=== PATIENT | male | born 1995 | race Caucasian/White ===

== ENCOUNTER 2021-07-16 03:01 | Outpatient (CLI) | payer BC, SELFPAY ==
--- NOTE | 2021-07-16 | DI.MRI_ITS ---
Exam(s) MR LOWER JOINT LT WO EXAM: MR LOWER JOINT LT WO CLINICAL HISTORY: LT HIP ROTATION, EXTENSION, MUSCLE ATROPHY, PAIN TECHNIQUE: Multiplanar multisequence MRI of the knee was performed. 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 No surrounding marrow edema i n the sacrum and iliac bones. The symphysis pubis appears unremarkable. There is a relatively well-defined area of significant intraosseous signal abnormality in the left hi p involving the upper half of the greater trochanter without a distinct fracture line in there is no evidence of ipsilateral hip joint effusion. No evidence of avascular necrosis. This signal abnorma lity involves the lower aspect of the ipsilateral femoral neck. It does not extend down to involve t he lesser trochanter and there is no evidence of iliopsoas bursitis there is no abnormal intraosseous signal seen in the acetabulum nor in the ipsilateral pubic rami and ischial tuberosity. There is no evidence of cortical breakthrough. There is some increased signal in the surrounding tendons but no full thickness tears and no fluid in the trochanteric bursa. There is no abnormal signal-tear of the hamstrings. IMPRESSION: 1. There is relatively well-defined area of signal abnormality in the upper half of the greater troch anter and lower aspect of the femoral neck of the left hip, not associated with fracture nor joint ef fusion. There is some signal increase in the contiguous tendons. Findings are probably related to tra yu and correlation with any recent direct trauma (such as bone contusion) is recommended. Bone lesio n is less likely but in the absence of recent trauma to this region I would recommend whole body nucl ear bone scan to determine if there are any other concerning areas in the skeleton. 2. 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 Correlation with any history of ankylosing spondylitis and/ or ot her systemic disease is recommended. DATA REPOSITORY:
== END 2021-07-16 03:21 ==
PROVIDERS: Visit Provider Chiropractor
DX: R52 Pain, unspecified (principal); R93.89 Abnormal findings on diagnostic imaging of other specified body structures
CPT/HCPCS: 73721

== ENCOUNTER 2021-08-19 11:19 | Emergency (ER) | payer BC, SELFPAY ==
--- NOTE | 2021-08-19 11:15 | DI.RAD_ITS ---
Exam(s) XR SHOULDER RT COMPLETE 2+V EXAM: XR SHOULDER RT COMPLETE 2+V CLINICAL HISTORY: R shoulder pain. TECHNIQUE: 2D digital imaging was performed. COMPARISON: No exams were available for comparison FINDINGS: BONES: No acute fracture is present. No bony destructive lesion is seen. JOINTS: No dislocation present. SOFT TISSUE: Normal. IMPRESSION: Unremarkable radiographs of the right shoulder. DATA REPOSITORY: RADIATION DOSE DELIVERED:
[2021-08-19 11:21] VITALS: BP 130/65; PULSE 72; RESP 14; TEMP 36.5; O2SAT 100
--- NOTE | 2021-08-19 11:32 | ED.GENADUL_ITS ---
Discharge Plan Disposition Patient Disposition: HOME Condition: Improving Discharge Details Chief Complaint: Orthopedic Clinical Impression: Sprain of right acromioclavicular joint Primary Care Provider: Ida,Local ED Provider: Roque Jackson Home Meds and New Rx's Prescriptions: No Action No Known Home Meds RF: 0 Discharge Instructions Instructions: Shoulder Sprain (ED) Additional Instructions: Wear sling approximately 7 days time. May remove once daily to perform range of motion exercises as well as for bathing. Tylenol and ibuprofen as needed for pain. Apply ice to area 20 minutes at a time to reduce pain and swelling. Please follow-up with physical therapy as prescribed. Return to the emergency department for any acute concerns. Stand Alone Forms: Physical Therapy Referral Medical Decision Making 25-year-old male was drawing back on a compound bow yesterday and as the police bowl began to release to try to jerk back against the tension of the bowel with pelvis strain right superior shoulder. Since that time pain with movement overhead. On exam the patient has somewhat limited range of motion due to pain but otherwise physical exam shows no deficits. He is tender overlying the right AC joint. X-rays negative for acute findings. Consistent with right AC joint strain. We will keep him in a sling for approximately 1 week, referred to physical therapy. He is stable for outpatient management. HPI General Mode of arrival: ambulatory . Date/Time Provider Initiated Documentation: 08/19/21 11:20 . Limitations to Documentation: no limitations . Information obtained by: patient . History of Present Illness 25 year old M presents to the emergency department with the chief complaint of Right shoulder pain since yesterday, described as mild, Quality is described as constant, and is localized to the right and upper extremity. Patient reports no radiation. Patient started experiencing this hour(s) and it has been intermittent. Rest improves symptom(s), Movement worsens symptoms . Patient notes denies weakness. Patient did receive the following treatments prior to arrival, none Related Data Home Medications Medication Instructions Recorded Confirmed Unknown [No Known Home Meds] 08/19/21 08/19/21 Allergies Allergy/AdvReac Type Severity Reaction Status Date / Time No Known Allergies Allergy Unverified 08/19/21 11:47 General Stated Complaint: Orthopedic UMAIR: 4 Review of Systems Narrative: No other injury, no weakness or tingling. Otherwise healthy young man. Needs primary care. 5 systems otherwise PFSH All Active Problems (Updated 08/19/21 @ 12:08 by Roque Jackson MD) Sprain of right acromioclavicular joint (Acute) Social History Smoking/Tobacco Use Status: Current-Occasional Tobacco Type: cigars Smoking risk assessment performed?: Yes Drug use: Never Substance use type: does not use Do you feel safe at home: Yes Do you feel safe in your relationship?: Yes Exam Narrative Exam Narrative: GEN: awake, alert, oriented 3. Pleasant, well groomed, interactive. HEAD: Normocephalic, atraumatic EYES: PERRL, EOMI NECK: Full ROM, no MAYRA, no menigismus CHEST/RESP: Nontender, clear to auscultation bilateral, no wheeze/rhonchi/rales CARDIOVASCULAR: RRR, no murmur, rub renate. 2+ Rad pulse bilateral EXT: Full ROM, right arm abduction is limited by pain. Right upper extremity reveals normal motor and sensory findings with 2+ radial pulse bilateral extremity. There is tenderness overlying the right AC joint without instability noted. Neuro: Grossly normal neurologic exam, conversant, interactive. Psych: Speech fluent, thoughts congruent, affect normal Course Vital Signs Vital signs: Vital Signs Temperature 36.5 C 08/19/21 11:21 Pulse 72 08/19/21 11:21 Respiratory Rate 14 08/19/21 11:21 Blood Pressure 130/65 08/19/21 11:21 Pulse Oximetry 100 08/19/21 11:21 Temperature 36.5 C 08/19/21 11:21 Temperature Source Oral 08/19/21 11:21 Pulse 72 08/19/21 11:21 Respiratory Rate 14 08/19/21 11:21 Blood Pressure 130/65 08/19/21 11:21 Blood Pressure Position Sitting 08/19/21 11:21 Pulse Oximetry 100 08/19/21 11:21 Oxygen Delivery Method Room Air 08/19/21 11:21 Oxygen Flow Rate 0 08/19/21 11:21 Pain Level 1 08/19/21 11:21
[2021-08-19 11:44] VITALS: PULSE 79; O2SAT 97
--- NOTE | 2021-08-19 11:51 | DI.VRAD_ITS ---
PROCEDURE INFORMATION: Exam: XR Right Shoulder Exam date and time: 08/19/2021 11:26 AM Age: 25 years old Clinical indication: Other: Right shoulder pain TECHNIQUE: Imaging protocol: XR Right shoulder. Views: 2 or more views. COMPARISON: No relevant prior studies available. FINDINGS: Bones/joints: There is no evidence of acute fracture.There is no evidence of malalignment or dislocation. Soft tissues: Normal. IMPRESSION: There is no evidence of acute fracture.There is no evidence of malalignment or dislocation. Dictated and Authenticated by: Peterson Chaidez MD. Ordering:OTTO Nevarez MD
[2021-08-19 12:03] VITALS: BP 112/62
--- NOTE | 2021-08-19 17:47 | NUR.NOTE ---
referral to cm for pcp
== END 2021-08-19 12:22 | disposition home or self-care (01) ==
PROVIDERS: Emergency Provider Emergency Medicine
DX: S43.51XA Sprain of right acromioclavicular joint, initial encounter (principal); X50.0XXA Overexertion from strenuous movement or load, initial encounter
CPT/HCPCS: 99283; 73030

== ENCOUNTER 2021-09-13 10:38 | Outpatient (REF) | payer BC, SELFPAY ==
[2021-09-13 14:00] LABS: HCT 40.4 % (40.0-50.0); HGB 12.8 g/dL (13.5-17.5); MCH 28.6 pg (27.0-33.0); MCHC 31.7 % (32.0-36.0); MCV 90.2 fL (80-95); MPV 9.6 fL (8.0-11.0); Platelet Count 299 10^3/uL (130-400); RBC 4.48 10^6/uL (4.36-5.78); RDW 12.3 % (11.8-14.1); RDW-SD 40.7 fL; WBC 8.52 10^3/uL (4.4-10.8)
[2021-09-13 14:21] LABS: ALT 34 U/L (16-63); AST 31 U/L (15-37); Alkaline Phosphatase 118 U/L (46-116); Anion Gap 8.8 mmol/L (3-11); BUN 23 mg/dL (7-18); Bilirubin, Total 0.4 mg/dL (0.2-1.0); CO2 27.2 mmol/L (21.0-32.0); CREATININE 0.7 mg/dL (0.70-1.30); Calcium 9.3 mg/dL (8.5-10.1); Chloride 105 mmol/L (98-107); Creatine Kinase 227 U/L (39-308); Glucose 92 mg/dL (74-106); Potassium 4.4 mmol/L (3.5-5.1); Sodium 141 mmol/L (136-145); Total Protein 7.5 g/dL (6.4-8.2)
== END 2021-09-13 10:39 | disposition home or self-care (01) ==
LOC: NCHCN 10:38
PROVIDERS: Visit Provider Nurse Practitioner Family
DX: R62.52 Short stature (child) (principal); M62.50 Muscle wasting and atrophy, not elsewhere classified, unspecified site
CPT/HCPCS: 80053; 82550; 85027

== ENCOUNTER 2022-08-29 18:51 | Outpatient (REF) | payer BC, SELFPAY ==
[2022-08-29 19:15] LABS: C-Reactive Protein 1.32 mg/dL (0.0-0.3)
[2022-08-29 19:19] LABS: ESR 30 mm/hr (0-15)
[2022-08-30 19:35] LABS: Rheumatoid Factor <8.6 IU/mL (<12.0)
== END 2022-08-29 18:52 | disposition home or self-care (01) ==
LOC: NCHCN 18:51
PROVIDERS: Visit Provider Nurse Practitioner Family
DX: M25.552 Pain in left hip (principal); M62.50 Muscle wasting and atrophy, not elsewhere classified, unspecified site; M54.59 Other low back pain
CPT/HCPCS: 85652; 86140; 86431

== ENCOUNTER 2022-11-12 14:52 | Outpatient (CLI) | payer SELFPAY ==
--- NOTE | 2022-11-12 14:00 | DI.RAD_ITS ---
Exam(s) XR HIP LT COMPLETE AP PELVIS EXAM: XR HIP LT COMPLETE AP PELVIS CLINICAL HISTORY: left hip pain. TECHNIQUE: 2D digital imaging was performed of the left hip. Two views were obtained. AP pelvis an d lateral left hip views were obtained. FINDINGS: BONES: No acute fracture is present. No bony destructive lesion is seen. JOINTS: No dislocation present. SOFT TISSUE: Normal. IMPRESSION: Unremarkable radiographs of the left hip. Unremarkable radiographs of the pelvis DATA REPOSITORY: RADIATION DOSE DELIVERED:
== END 2022-11-12 14:53 | disposition home or self-care (01) ==
LOC: DIORS 14:52
PROVIDERS: PCP Nurse Practitioner Family; Visit Provider Physician Assistant
DX: M25.552 Pain in left hip (principal)
CPT/HCPCS: 73502

== ENCOUNTER 2023-10-24 19:39 | Emergency (ER) | payer BC, SELFPAY ==
[2023-10-24 19:44] VITALS: BP 145/71; PULSE 76; RESP 22; TEMP 36.4; O2SAT 97
--- NOTE | 2023-10-24 19:48 | W.ED.GENAD ---
Discharge Plan Discharge Details Chief Complaint: Orthopedic Clinical Impression: Effusion, left hip Primary Care Provider: BERNADETTE ALVARADO ED Provider: Jas Moctezuma Home Meds and New Rx's Prescriptions: No Action No Known Home Meds HPI General Date/Time Provider Initiated Documentation: 10/24/23 19:48. HPI Narrative: MDM This is an overall very well-appearing normothermic and not tachycardic 28-year-old male with ankylosing spondylitis now with left hip pain and weakness concerning for exacerbation of prior trochanteric bursitis. No pain out of proportion to suggest necrotizing soft tissue infection. No history of malignancy to suggest increased risk for pathological fracture. I considered septic joint as patient did have a fever several days ago so we will obtain inflammatory markers. No rash to hip to suggest zoster. No ecchymosis to suggest trauma. No dysuria nor frequency so doubt UTI. No testicular pain to suggest testicular torsion and I do not feel that the patient required an ultrasound. No history of peripheral vascular disease nor any pulse deficits so I did not feel that the patient required a CT angiogram with runoffs. No left lower quadrant pain to suggest diverticulitis and no diarrhea. No right lower quadrant pain to suggest appendicitis. No back pain to suggest cauda equina. No recent tick bites to suggest Lyme arthritis. Will treat with acetaminophen and ibuprofen and reassess following plain films. Will complete bedside ultrasound to assess for any obvious effusion. 8:53 PM Limited bedside ultrasound showing left hip effusion for which I ordered blood cultures basic labs and a sed rate and CRP. Will also order Lyme and tickborne panel panel. Patient is not septic appearing so I did not order a lactate nor treat empirically with broad-spectrum antibiotics. Will speak with on-call orthopedics. Unfortunately we do not have orthopedics on locally. I have paged orthopedics at [facility]. 9:45 PM Patient metabolic panel showing no MAKENZIE. Normal glucose. Mildly elevated BUN. CRP markedly elevated at 9.62 mg/dL. CBC with no anemia no leukocytosis. No thrombocytopenia. ESR elevated at 59 mm/h. Virtual radiology preliminary read showing mild bony spurring off of the inferior aspect of the greater trochanter. Reportedly stable since November 12, 2022. 10:30 PM I spoke with Dr. Pablo Stevens From [facility] orthopedics. He advised observing off of antibiotics. He recommended transfer to [facility] for consideration of IR arthrocentesis. I spoke with Dr. Jones from the ED at [facility] who agreed graciously to accept the patient. I updated the patient on plan of care and transferred the patient via basic crew. Chronic conditions affecting the care of the patient: Left hip pain weakness History obtained from an outside historian: N/A External record review: [facility] EMR Medications: Acetaminophen ibuprofen Social determinants of health affecting disposition: N/A Management discussed with: N/A Treatment/interventions considered: N/A Response to therapies provided: N/A HPI This is a 28-year-old male with history of trochanteric left hip bursitis arrived to the emergency department via private vehicle with his girlfriend in the setting of left hip pain. 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 He notes that 4 days ago he began having slight pain in his left hip associated with stiffness. He did not fall. He denies any trauma to his left hip. He has no history of malignancy. He does have a history of ankylosing spondylitis but has not been adherent with his adalimumab secondary to cost. He notes that 2 days ago he had a fever but also had some nausea. He had several coworkers who were sick with a stomach bug. He denies any testicular pain. He has had no recent tick bites. He denies any abdominal pain and specifically denies history of right lower and left lower quadrant pain. He reports that he has had similar symptoms in the past. He is generally able to flex his left hip and this improves his symptoms. He reports slightly decreased range of motion in his left hip. He has been using his father's old crutches. Exam General: Well-appearing in no acute distress speaking in complete sentences. Head: Normocephalic, atraumatic. Eye: Extraocular eye movements intact. No conjunctival injection. No scleral icterus. Ear, nose, mouth, throat: Grossly normal inspection. Normal voice, handling secretions normally. Neck: Trachea midline. Cardiovascular: Well-perfused distal extremities. Respiratory: Nonlabored respiration. Gastrointestinal: Nondistended abdomen. Musculoskeletal: Left lower extremity no signs of muscle wasting deformities ecchymosis or lacerations. Left foot warm well-perfused less than 2-second capillary refill. 2+ left PT and DP pulse. 5 out of 5 strength left foot dorsi and plantarflexion. Patient has no tenderness to left lower extremity. He has full range of motion in his left ankle and left knee. His left hip has slight limitation in his ability to flex. He can flex to approximately 110 degrees. 5 out of 5 strength in dorsi and plantarflexion. Patient is able to straight leg raise on the left. Skin: Normal for age and race, grossly normal temperature and turgor. No acute rash. Neurologic: Alert and appropriate, no apparent acute deficits. Psychiatric: Mood and manner are appropriate. Grooming and personal hygiene are appropriate. Related Data Home Medications Medication Instructions Recorded Confirmed Unknown [No Known Home Meds] 08/19/21 10/24/23 Allergies Allergy/AdvReac Type Severity Reaction Status Date / Time No Known Allergies Allergy Unverified 08/02/23 13:00 General Stated Complaint: Orthopedic UMAIR: 3 Course Vital Signs Vital signs: Vital Signs Temperature 36.4 C 10/24/23 19:44 Pulse 76 10/24/23 19:44 Respiratory Rate 22 10/24/23 19:44 Blood Pressure 145/71 H 10/24/23 19:44 Pulse Oximetry 97 10/24/23 19:44 Temperature 36.4 C 10/24/23 19:44 Temperature Source Oral 10/24/23 19:44 Pulse 76 10/24/23 19:44 Respiratory Rate 22 10/24/23 19:44 Blood Pressure 145/71 H 10/24/23 19:44 Blood Pressure Position Sitting 10/24/23 19:44 Pulse Oximetry 97 10/24/23 19:44 Oxygen Delivery Method Room Air 10/24/23 19:44 Oxygen Flow Rate 0 10/24/23 19:44 Pain Level 3 10/24/23 19:44 Medical Decision Making Quality:SDOH Health Related Social Needs: No Data to Display PFSH All Active Problems (Updated 10/24/23 @ 20:45 by Jas Moctezuma MD) Effusion, left hip (Acute) Trochanteric bursitis, left hip (Acute) Weakness of left hip (Acute) Medical History Muscle atrophy Short stature Chronic low back pain Social History Smoking/Tobacco Use Status: Current-Occasional Tobacco Type: cigars Smoking risk assessment performed?: Yes Alcohol Intake: current Alcohol Intake frequency: holidays/special occasions only Alcohol type: beer Drug use: Never Substance use type: does not use Housing: house Current gender identity: male Do you feel safe at home: Yes Do you feel safe in your relationship?: Yes POCUS Exam (ED) Limited Soft Tissue Exam DATE OF EXAM: 10/24/23 TIME OF EXAM: 20:44 PROVIDER THAT PERFORMED THE STUDY: Jas Moctezuma IS THIS A REPEAT EXAM DURING THIS ENCOUNTER: No LOCATION OF EXAM: Lower extremity/left REASON FOR EXAM: Pain Exam Complete DIFFERENTIAL DIAGNOSES: Left hip effusion. No right hip effusion.
--- NOTE | 2023-10-24 20:00 | DI.RAD_ITS ---
Exam(s) XR HIP LT COMPLETE AP PELVIS EXAM: XR HIP LT COMPLETE AP PELVIS CLINICAL HISTORY: Left hip pain. TECHNIQUE: 2D digital imaging was performed. COMPARISON: CR XR HIP LT COMPLETE AP PELVIS from 11/12/2022 FINDINGS: 3 views No evidence of pelvic nor hip fracture. There is mild uniform narrowing of the left hip joint space. No femoral head osteophytes. There is unilateral left-sided spurring off the inferior aspect of the left greater trochanter. This may represent enthesopathy at musculotendinous insertion. Nevertheless, this finding is unchanged f rom x-rays of October 2022. IMPRESSION: As above but no acute osseous findings in the pelvis and left hip. Mild uniform left hip joint space narrowing which is also unchanged from 1 year ago. DATA REPOSITORY: RADIATION DOSE DELIVERED:
[2023-10-24] MEDS: Ibuprofen 400 MG TAB PO (20:11)
[2023-10-24] MEDS: Acetaminophen 500 MG TAB 650 MG PO (20:12)
--- NOTE | 2023-10-24 20:57 | DI.VRAD_ITS ---
PROCEDURE INFORMATION: Exam: XR Left Hip Exam date and time: 10/24/2023 8:16 PM Age: 28 years old Clinical indication: Left hip; Patient HX: Lt hip pain TECHNIQUE: Imaging protocol: Radiologic exam of the left hip. Views: 2 or 3 views hip with pelvis when performed. COMPARISON: CR XR HIP LT COMPLETE AP PELVIS 11/12/2022 2:34 PM FINDINGS: Bones/joints: There is mild spurring off the inferior aspect of the greater trochanter. This could represent a chronic tendinous insertion site enthesopathy. This is also present 11/12/2022.. No acute fracture. Soft tissues: Unremarkable. IMPRESSION: 1. No acute findings. 2. Mild bony spurring off of the inferior aspect of the greater trochanter. This could represent a chronic enthesopathy at a musculotendinous insertion. Previous MRI dated 07/16/2021 also describes changes of the greater trochanter thought to possibly represent old trauma. 3. Stable since 11/12/2022. Dictated and Authenticated by: Prince Rendon MD. Ordering:AFSHIN Mark MD
[2023-10-24 21:08] LABS: ESR 59 mm/hr (0-15)
[2023-10-24 21:11] LABS: Abs Immature Grans 0.03 10^3/uL (0.0-0.06); Absolute Basophil Count 0.07 10^3/uL (0.0-0.2); Absolute Eosinophil Count 0.23 10^3/uL (0.0-0.7); Absolute Lymphocyte Count 3.58 10^3/uL (1.2-3.4); Absolute Monocyte Count 0.91 10^3/uL (0.1-0.8); Absolute Neutrophil Count 4.83 10^3/uL (1.2-6.7); Basophils % 0.7; Eosinophils % 2.4; HCT 42.5 % (40.0-50.0); HGB 14.1 g/dL (13.5-17.5); Immature Grans % 0.3; Lymphocytes % 37.1; MCH 28.2 pg (27.0-33.0); MCHC 33.2 % (32.0-36.0); MCV 85 fL (80-95); MPV 9.6 fL (8.0-11.0); Monocytes % 9.4; Neutrophils % 50.1; Platelet Count 309 10^3/uL (130-400); RDW 12.8 % (11.8-14.1); RDW-SD 39.6 fL; WBC 9.65 10^3/uL (4.4-10.8)
[2023-10-24 21:20] LABS: Anion Gap 9.5 mmol/L (3-11); BUN 20 mg/dL (7-18); C-Reactive Protein 9.62 mg/dL (<or=0.5); CO2 28.5 mmol/L (21.0-32.0); CREATININE 0.8 mg/dL (0.70-1.30); Calcium 9.6 mg/dL (8.5-10.1); Chloride 101 mmol/L (98-107); Glucose 95 mg/dL (74-106); Potassium 3.9 mmol/L (3.5-5.1); Sodium 139 mmol/L (136-145)
[2023-10-24 22:00] VITALS: BP 126/66; RESP 16; TEMP 36.6; O2SAT 98
[2023-10-24] MEDS: Ondansetron 4 MG/2 ML VIAL IVP (22:47)
[2023-10-24 23:02] VITALS: BP 120/80; PULSE 88; RESP 16; TEMP 36.6; O2SAT 98
[2023-10-27 10:51] LABS: Lyme Ab w Rflx to Lyme Confirm Negative (Negative)
[2023-10-28 15:25] LABS: Anaplasma phagocytophilum Negative (Negative); B. miyamotoi PCR Negative (Negative); Babesia divergens/MO-1 Negative (Negative); Babesia duncani Negative (Negative); Babesia microti Negative (Negative); Ehrlichia chaffeensis Negative (Negative); Ehrlichia ewingii/canis Negative (Negative); Ehrlichia muris eauclairensis Negative (Negative)
== END 2023-10-24 23:17 ==
LOC: ER 19:42
PROVIDERS: Emergency Provider Emergency Medicine; PCP Nurse Practitioner Family
DX: M25.552 Pain in left hip (principal); M25.572 Pain in left ankle and joints of left foot; M79.672 Pain in left foot; M25.452 Effusion, left hip; M70.62 Trochanteric bursitis, left hip
CPT/HCPCS: 76882; 80048; 85652; 87040; 87798; 96374; 99283; 73502; 85025; 86140; 86618; J2405

== ENCOUNTER 2025-02-26 14:31 | Emergency (ER) | payer OTHER, SELFPAY ==
--- NOTE | 2025-02-26 14:35 | ED.GENADUL_ITS ---
Discharge Plan Disposition Patient Disposition: Home Discharge Details Clinical Impression: Laceration of left lower leg, Immunization, tetanus-diphtheria Primary Care Provider: BERNADETTE ALVARADO ED Provider: Jas Moctezuma Home Meds and New Rx's Prescriptions: New cephalexin 500 mg capsule 500 mg PO QID 5 Days Qty: 20 0RF Continued Humira Pen 40 mg/0.8 mL pen injector kit See Rx Instructions subcut .COMPLEX Rx Instructions: inject one - 40 mg/0.8 mL pen every 2 weeks subcut Discharge Instructions Additional Instructions: You are seen in the emergency department for your ankle laceration. This was closed with sutures that will need to be removed in 7 to 10 days. As we discussed, please keep your wound clean, dry and covered. Please do not soak in a tub, swim or engage in any activities which could introduce dirt into your wound. You may return to the emergency department, go to urgent care or go to your primary care provider in 7 to 10 days to have your stitches removed. As we discussed if you develop any foul-smelling drainage fevers streaking signs of infection or have any other concerns please return to the emergency department. Your tetanus was updated. Please take these antibiotics as directed. Please wear this boot while your stitches are in. Please inspect your laceration once a day to ensure that there are no signs of infection. For your pain please take medications as follows: 1. Take acetaminophen (Tylenol), 650 every 6 hours [2. Take ibuprofen (Advil), 400 mg every 6 hours.] HPI General Date/Time Provider Initiated Documentation: 02/26/25 14:35 . HPI Narrative: MDM Primary survey intact. Reassuring shock index. On secondary survey patient has left lateral ankle in abrasion that cision violates the subcutaneous tissue for which patient will receive bedside irrigation following LET and before primary closure with 2 g cefazolin and tetanus immunization. Will obtain plain film given outdoor injury to assess for any foreign bodies. My suspicion for any acute osseous abnormalities is low given patient i has s intact range of motion in his left ankle. Patient does have some exposed tendon however given preserved range of motion I am not concerned for tendon laceration laceration so I do not feel patient requires orthopedic transfer. Will provide patient with a walking boot to promote wound healing and make him weightbearing as tolerated. We discussed that he should return to the ED if you develop streaking signs of infection fevers or any foul-smelling drainage. Will place him on prophylactic 5-day course of cephalexin 500 mg 4 times daily given adalimumab treatment. Patient understood his return indications and was discharged with empiric trial of expectant outpatient management. HPI This is a patient with a history of ankylosing spondylitis on adalimumab presenting with a left ankle injury. The patient sustained an injury to the outer part of his left ankle approximately 30 minutes ago while moving reyna pins. He describes the incident as having occurred when he turned around and hurt his ankle, which resulted in a significant impact to the outside of his left ankle. The wound was cleaned as thoroughly as possible but remains contaminated. The patient reports no other injuries or cuts from the incident. He states that he is not diabetic and is not on blood thinners. His last tetanus shot was 5 years ago, and he is open to receiving another one. He believes he received all necessary vaccinations during his childhood. Exam General: Well-appearing in no acute distress speaking in complete sentences. Head: Normocephalic, atraumatic. Eye: Extraocular eye movements intact. No conjunctival injection. No scleral icterus. Ear, nose, mouth, throat: Grossly normal inspection. Normal voice, handling secretions normally. Neck: Trachea midline. Cardiovascular: Well-perfused distal extremities. Respiratory: Nonlabored respiration. Gastrointestinal: Nondistended abdomen. Musculoskeletal: On the lateral aspect of the left lower extremity just inferior to the left lateral malleolus there is a hemostatic curvilinear approximately 4- 1/2 cm laceration that violates the subcutaneous tissue with underlying exposed tendon. Patient has intact preserved full range of motion in his left foot. He is 5 out of 5 strength in dorsi and plantarflexion. Cap refills less than 2 seconds left toes. He has intact PT and DP pulses in his left foot. He has no tenderness at his tibia nor fibula. Skin: Normal for age and race, grossly normal temperature and turgor. No acute rash. Neurologic: Alert and appropriate, no apparent acute deficits. GCS 15. Psychiatric: Mood and manner are appropriate. Grooming and personal hygiene are appropriate. Related Data Home Medications ?Medication ?Instructions ?Recorded ?Confirmed adalimumab 40 mg/0.8 mL See Rx Instructions subcut . COMPLEX 03/12/24 02/26/25 subcutaneous pen kit (Humira Pen) cephalexin 500 mg capsule 500 mg PO QID 5 days #20 cap s 02/26/25 Previous Rx's ?Medication ?Instructions ?Recorded cephalexin 500 mg capsule 500 mg PO QID 5 days #20 cap s 02/26/25 Allergies Allergy/AdvReac Type Severity Reaction Status Date / Time No Known Allergies Allergy Unverified 03/12/24 18:29 General UMAIR: 3 Procedure Laceration Laceration 1: Date of Procedure: 02/26/25 Time of procedure: 15:46 Provider that performed the procedure: Jas Sherwood Time Out Performed: Yes Patient Consented: Verbally Site: lower extremity Side (If applicable): left Description: linear Depth: simple, single layer Local anesthetic: Lidocaine 2%, with Epi and LET(lidocaine epinephrine tetracaine) Amount of anesthesia used (mL): 8 Pre-repair:: wound explored, irrigated extensively and deep structures intact Skin layer closed with: nylon Suture size: 4-0 Number of sutures:: 8 Technique: simple, interrupted and vertical mattress Subcutaneous layer closed with: vicryl Suture size: 4-0 Number of sutures:: 3 Technique:: simple, interrupted Procedure Description/Note: Tolerated procedure well. PFSH All Active Problems (Updated 02/26/25 @ 14:50 by Jas Moctezuma MD) Immunization, tetanus-diphtheria (Acute) Laceration of left lower leg (Acute) Cellulitis and abscess of left leg (Acute) Local reaction to insect sting (Acute) Chronic low back pain (Chronic) Muscle atrophy (Acute) Short stature (Acute) Ankylosing spondylitis (Acute) Trochanteric bursitis, left hip (Acute) Weakness of left hip (Acute) Medical History Muscle atrophy Short stature Chronic low back pain Social History Smoking/Tobacco Use Status: Current-Occasional Tobacco Type: cigars Smoking risk assessment performed?: Yes Alcohol Intake: former Drug use: Never Substance use type: does not use Housing: house Current gender identity: male Do you feel safe at home: Yes Do you feel safe in your relationship?: Yes
[2025-02-26 14:36] VITALS: BP 106/43; PULSE 93; RESP 18; TEMP 36.6; O2SAT 97
[2025-02-26] MEDS: Acetaminophen 325 MG TAB 650 MG PO (14:52)
[2025-02-26] MEDS: ceFAZolin 2 GM/50 ML BAG IVPB (14:53)
[2025-02-26] MEDS: Normal Saline 500 ML IV (14:53)
[2025-02-26] MEDS: Ketorolac 15 MG/ML VIAL IVP (14:56)
[2025-02-26] MEDS: Diph,Pertuss(Acell),Tet Vac/Pf 0.5 ML SYR IM (14:57)
[2025-02-26] MEDS: Lidocaine/Epinephri/Tetracaine Topical Gel 3 ML TP (14:58)
--- NOTE | 2025-02-26 15:18 | DI.RAD_ITS ---
Exam(s) XR ANKLE LT 2V EXAM: XR ANKLE LT 2V CLINICAL HISTORY: Left lateral ankle laceration TECHNIQUE: 2D digital imaging was performed of the left ankle. Two images were obtained. AP and lateral views were obtained. COMPARISON: No exams were available for comparison FINDINGS: BONES: No acute fracture is present. No bony destructive lesion is seen. JOINTS:The ankle mortise is normally aligned. SOFT TISSUE: There is a skin defect in the soft tissues lateral to the fibula consistent with a laceration. No radiopaque foreign body is seen. IMPRESSION: 1. There is no acute fracture or dislocation. 2. Skin defect in the soft tissues of the lateral ankle consistent with a laceration. No radiopaque foreign bodies are identified. DATA REPOSITORY: RADIATION DOSE DELIVERED:
[2025-02-26] MEDS: Lidocaine 2% Multi-Dose W/EPI 1/100,000 20 ML VIAL IJ (15:26)
[2025-02-26 16:04] VITALS: BP 132/67; PULSE 64; RESP 16; TEMP 37; O2SAT 99
--- NOTE | 2025-02-28 13:06 | NUR.NOTE ---
Access chart to print the demographic sheet to go with [facility] billing requisitions and to get the discharge diagnosis. Nursing Note:
--- NOTE | 2025-04-18 09:40 | NUR.NOTE ---
Accessed Pt chart to print the Providers note for [facility]. I will fax the notes to them
== END 2025-02-26 16:09 | disposition home or self-care (01) ==
LOC: ER 15:56
PROVIDERS: Emergency Provider Emergency Medicine; PCP Nurse Practitioner Family
DX: S91.012A Laceration without foreign body, left ankle, initial encounter (principal); X58.XXXA Exposure to other specified factors, initial encounter; Z23 Encounter for immunization
CPT/HCPCS: 99284; 99283; 90471; 96375; 12002; 90715; 96365; 73600; J0690; J1885; J2004

== ENCOUNTER 2025-03-08 13:11 | Emergency (ER) | payer OTHER, SELFPAY ==
[2025-03-08 13:20] VITALS: BP 146/89; PULSE 65; RESP 12; TEMP 37.4; O2SAT 97
--- NOTE | 2025-03-08 13:28 | ED.GENADUL_ITS ---
Discharge Plan Disposition Patient Disposition: Home Condition: Stable Discharge Details Clinical Impression: Encounter for removal of sutures Primary Care Provider: BERNADETTE ALVARADO ED Provider: Bryan Murcia Home Meds and New Rx's Prescriptions: No Action Humira Pen 40 mg/0.8 mL pen injector kit See Rx Instructions subcut .COMPLEX Rx Instructions: inject one - 40 mg/0.8 mL pen every 2 weeks subcut Discharge Instructions Additional Instructions: You were seen in the emergency department for your visit for suture removal, we removed 4 of the 8 sutures and placed a Steri-Strip across part of the wound that the edges were moving a little bit with manual traction. You have no signs of infection at this time please return in 48 hours for removal of the remainder of sutures. Referrals: BERNADETTE ALVARADO, [facility] [Primary Care Provider, Medicine] Discharge Data Discharge Date/Time-TO BE ENTERED AT DEPARTURE: 03/08/25 14:13 HPI General Date/Time Provider Initiated Documentation: 03/08/25 13:26 . Related Data Home Medications ?Medication ?Instructions ?Recorded ?Confirmed adalimumab 40 mg/0.8 mL See Rx Instructions subcut . COMPLEX 03/12/24 03/08/25 subcutaneous pen kit (Humira Pen) Allergies Allergy/AdvReac Type Severity Reaction Status Date / Time No Known Allergies Allergy Verified 03/08/25 13:21 General Stated Complaint: SutureRem UMAIR: 4 Course Vital Signs Vital signs: Vital Signs Temperature 37.4 C 03/08/25 13:20 Pulse 65 03/08/25 13:20 Respiratory Rate 12 03/08/25 13:20 Blood Pressure 146/89 H 03/08/25 13:20 Pulse Oximetry 97 03/08/25 13:20 Temperature 37.4 C 03/08/25 13:20 Temperature Source Oral 03/08/25 13:20 Pulse 65 03/08/25 13:20 Respiratory Rate 12 03/08/25 13:20 Blood Pressure 146/89 H 03/08/25 13:20 Blood Pressure Position Sitting 03/08/25 13:20 Pulse Oximetry 97 03/08/25 13:20 Oxygen Delivery Method Room Air 03/08/25 13:20 Oxygen Flow Rate 0 03/08/25 13:20 Medical Decision Making This dictation utilizes [id number] dictation software and may contain unedited grammatical errors. 29-year-old male presents 9 days after suture placement to his left lateral ankle from a piece of sheet metal hitting his ankle, I removed 4 of the sutures including the 2 vertical mattress sutures but the rest need to stay as this half of the wound that is posterior still mobilizes a little bit with manual traction. I placed 1 Steri-Strip across the remainder of the wound as there was some movement of the wound borders where the second mattress suture was, recommend return in 48 hours for removal. There is mild bruising to the area but no signs of infection at the wound, denies fever, no purulent drainage, he has been changing the dressing daily. Patients' medical history: Noncontributory. Family and social history: Noncontributory. Pertinent exam findings / vital signs include healing laceration to the left lateral ankle without signs of erythema, purulent drainage, lymphadenitis or other signs of infection. Differential / pathologies of concern include suture removal. Diagnostic studies of: -None. Interventions of: -Removed 4 of the 8 sutures and placed 1 Steri-Strip across part of the wound that had partial wound border movement with light manual traction. Disposition of Encounter for Removal of Sutures. Patient verbalized understanding of the plan and return to ED criteria and engaged in shared decision making. Medical Records Medical records reviewed: Yes I reviewed the patient's medical records. [facility] All Active Problems (Updated 03/08/25 @ 14:04 by TRESSA Null) Encounter for removal of sutures (Acute) Immunization, tetanus-diphtheria (Acute) Laceration of left lower leg (Acute) Cellulitis and abscess of left leg (Acute) Local reaction to insect sting (Acute) Chronic low back pain (Chronic) Muscle atrophy (Acute) Short stature (Acute) Ankylosing spondylitis (Acute) Trochanteric bursitis, left hip (Acute) Weakness of left hip (Acute) Medical History Muscle atrophy Short stature Chronic low back pain Social History Smoking/Tobacco Use Status: Current-Occasional Tobacco Type: cigars Smoking risk assessment performed?: Yes Alcohol Intake: former Drug use: Never Substance use type: does not use Housing: house Current gender identity: male Do you feel safe at home: Yes Do you feel safe in your relationship?: Yes
[2025-03-08 14:13] VITALS: BP 110/70; PULSE 72; RESP 14; TEMP 36.7; O2SAT 100
== END 2025-03-08 14:13 | disposition home or self-care (01) ==
PROVIDERS: Emergency Provider Physician Assistant; PCP Nurse Practitioner Family
DX: Z48.02 Encounter for removal of sutures (principal)